=== PATIENT | male | born 1955 | race Caucasian/White ===

== ENCOUNTER 2017-08-14 08:26 | Inpatient (IN) | payer OTHER ==
--- NOTE | 2017-08-14 06:44 | PDHPUP ---
History & Physical Update H&P update statement: This history and physical update is based on an assessment of the patient which was completed after admission or registration (within 24 hours), but prior to the surgery/procedure. H&P update: H&P reviewed & patient examined, no change in patient's condition since H&P completed
[2017-08-14] MEDS ORDERED: GABAPENTIN 300 MG CAP PO ONE (08:38)
[2017-08-14] MEDS ORDERED: ACETAMINOPHEN 500 MG TAB PO ONE (08:38)
[2017-08-14] MEDS ORDERED: ceFAZolin 2 GM/SWFI 2 GM/20 ML SYR IVP ONE (08:38)
[2017-08-14] MEDS ORDERED: LR 1,000 ML IV ONE (08:39)
[2017-08-14] MEDS ORDERED: LIDOCAINE 1% 2 ML INJ ID PRN (08:39)
[2017-08-14] MEDS ORDERED: CHLORHEXIDINE GLUC HIBICLENS 118 ML BTL TP ONE (09:08)
[2017-08-14] MEDS ORDERED: THROMBIN (BOVINE) 5,000 UNIT VIAL TP ONE (09:08)
[2017-08-14] MEDS ORDERED: BUPIVACAINE 0.25% 30 ML SDV ONE (09:08)
[2017-08-14] MEDS ORDERED: EPINEPHrine 1 MG/ML INJ ONE (09:09)
[2017-08-14] MEDS ORDERED: BACITRACIN 50,000 UNITS/10 ML SYR IRR ONE ×2 (09:09→13:39)
[2017-08-14] MEDS ORDERED: ONDANSETRON 4 MG/2 ML VIAL IVP PRN ×2 (09:37→10:42)
[2017-08-14] MEDS ORDERED: NALOXONE HCL 0.4 MG/ML INJ IVP PRN ×2 (09:37→10:42)
[2017-08-14] MEDS ORDERED: HYDROmorphONE/DILAUDID 2 MG/ML INJ IVP PRN (09:37)
[2017-08-14] MEDS ORDERED: ALBUTEROL 3 ML DEYVIAL IH PRN (09:37)
[2017-08-14] MEDS ORDERED: MIDAZOLAM 2 MG/2 ML VIAL IVP ONE (09:37)
[2017-08-14] MEDS ORDERED: oxyCODONE IR 5 MG TAB PO PRN (09:37)
[2017-08-14] MEDS ORDERED: DEXAMETHASONE 4 MG/ML VIAL IVP PRN (09:37)
--- NOTE | 2017-08-14 09:39 | PDANEPAE ---
ANE History of Present Illness L4-S1 TLIF ANE Past Medical History - Cardiovascular History Hx Hypertension: No Hx Arrhythmias: No Hx Chest Pain: No Hx Coronary Artery / Peripheral Vascular Disease: No Hx CHF / Valvular Disease: No Hx Palpitations: No - Pulmonary History Hx COPD: No Hx Asthma/Reactive Airway Disease: No Hx Recent Upper Respiratory Infection: No Hx Oxygen in Use at Home: No Hx Sleep Apnea: No Sleep Apnea Screening Result - Last Documented: Negative Pulmonary History Comment: SEASONAL ALLERGIES-USES NASAL SPRAY - Neurologic History Hx Cerebrovascular Accident: No Hx Seizures: No Hx Dementia: No - Endocrine History Hx Diabetes: No - Renal History Hx Renal Disorders: No Renal History Comment: BPH ?- ON RX - Liver History Hx Hepatic Disorders: No - Neurological & Psychiatric Hx Hx Neurological and Psychiatric Disorders: Yes Neurological / Psychiatric History Comment: LOW BACK PAIN RADIATES BILAT LEGS, AND RADIATES UPWARD. TX W/ ALKA - Cancer History Hx Cancer: No - Congenital Disorder History Hx Congenital Disorders: No - GI History Hx Gastrointestinal Disorders: Yes Gastrointestinal History Comment: GERD-ON RX - Other Health History Other Health History: DRY SKIN- KAMI HANDS AND FEET - Chronic Pain History Chronic Pain: Yes (LOW BACK,LEGS) - Surgical History Prior Surgeries: TONSILLECTOMY AGE 4 ANE Review of Systems Review of Systems: - Exercise capacity Exercise capacity: >=4 METS METS (RN): 4 METS ANE Patient History - Allergies Allergies/Adverse Reactions: No Known Allergies Allergy (Verified 08/14/17 09:03) - Home Medications Home Medications: Finasteride [Proscar 5 MG (*)] 5 mg PO DAILY 08/04/17 [Last Taken 08/13/17 22:00 ] Fluticasone Nasal [Flonase Nasal [place] (RX)] 1 sprays NASAL DAILY 08/04/17 [ Last Taken 08/13/17 22:00] Pantoprazole Sodium [Protonix 40mg (*)] 40 mg PO DAILY 08/04/17 [Last Taken 06:00] Tamsulosin HCl [Flomax 0.4 MG (*)] 0.4 mg PO DAILY 08/04/17 [Last Taken 06:00] - Smoking Hx Smoking Status: Never smoked - Family Anes Hx Family Hx Anesthesia Complications: NONE ANE Labs/Vital Signs - Vital Signs Height: 180.34 cm Weight: 95.254 kg ANE Physical Exam - Airway Neck exam: FROM Mallampati Score: Class 2 - Pulmonary Pulmonary: clear to auscultation - Cardiovascular Cardiovascular: regular rate and rhythym - ASA Status ASA Status: II ANE Anesthesia Plan Anesthesia Plan: general endotracheal anesthesia
[2017-08-14] MEDS ORDERED: PROPOFOL/EMULSION 500 MG/50 ML BOTTLE IV ONE ×3 (09:43→12:41)
[2017-08-14] MEDS ORDERED: SUCCINYLCHOLINE CHLORIDE 200 MG/10 ML SYR IVP ONE (09:47)
[2017-08-14] MEDS ORDERED: LIDOCAINE 2% 5 ML SDV ONE (09:48)
[2017-08-14] MEDS ORDERED: ONDANSETRON 4 MG/2 ML VIAL ONE (09:49)
[2017-08-14] MEDS ORDERED: RANITIDINE 50 MG/2 ML VIAL ONE (09:49)
[2017-08-14] MEDS ORDERED: MIDAZOLAM 2 MG/2 ML VIAL ONE (09:49)
[2017-08-14] MEDS ORDERED: DEXAMETHASONE 4 MG/ML VIAL ONE ×2 (09:49)
[2017-08-14] MEDS ORDERED: HYDROmorphONE/DILAUDID 2 MG/ML INJ ONE (10:10)
[2017-08-14] MEDS ORDERED: HYDROmorphONE/DILAUDID 6 MG/30 ML PCA IV PRN (10:42)
[2017-08-14] MEDS ORDERED: HYDROmorphONE/DILAUDID 1 MG/ML INJ IVP PRN (10:42)
[2017-08-14] MEDS ORDERED: BISACODYL 10 MG SUPP PR PRN (10:42)
[2017-08-14] MEDS ORDERED: diphenhydrAMINE 25 MG CAP PO PRN (10:42)
[2017-08-14] MEDS ORDERED: ONDANSETRON DISINTEGRATING 4 MG TAB PO PRN (10:42)
[2017-08-14] MEDS ORDERED: HYDROCODONE/APAP 5/325 TAB PO PRN (10:42)
[2017-08-14] MEDS ORDERED: POLYETHYLENE GLYCOL 3350 17 GM PKT PO PRN (10:42)
[2017-08-14] MEDS ORDERED: MAGNESIUM HYDROXIDE 30 ML UDCUP PO PRN (10:42)
[2017-08-14] MEDS ORDERED: LACTULOSE 20 GM/30 ML UDCUP PO PRN (10:42)
[2017-08-14] MEDS ORDERED: NS 1,000 ML IV SCH (10:45)
[2017-08-14] MEDS ORDERED: ePHEDrine SULFATE 25 MG/5 ML SYR ONE ×2 (11:09)
[2017-08-14] MEDS ORDERED: VASOPRESSIN 20 UNIT/ML VIAL ONE (13:44)
[2017-08-14] MEDS ORDERED: ceFAZolin 1 GM VIAL ONE (14:12)
[2017-08-14] MEDS ORDERED: PROPOFOL 200 MG/20 ML VIAL ONE (14:31)
--- NOTE | 2017-08-14 15:29 | POSTANESTH ---
Post Anesthetic Evaluation Cardiovascular Status: Normal, Stable Respiratory Status: Requires Airway Assist Level of Consciousness/Mental Status: Moderately Sleepy Pain Control: Adequate, Prn Tx Ordered Nausea/Vomiting Control: Adequate, Prn Tx Ordered
--- NOTE | 2017-08-14 15:35 | POSTOPPROG ---
Post Op Note Date of Operation: 08/14/17 Surgeon: Eder Palacios Supervisor [employer]: Susana Anesthesiologist: Diaz Anesthesia: GET(General Endotracheal), Local (Specify) (to incision area) Pre-op Diagnosis: lumbar stenosis/pars defect L4 and L5 Post-op Diagnosis: lumbar stenosis/pars defect L4 and L5 Indication: LBP with BLE pain Procedure: TLIF L4/5 and L5/S1 with davis decompression bilaterally Findings: none Inf/Abcess present in the surg proc area at time of surgery?: No Depth: Deep Incisional (Fascial) EBL: 100-500 Complications: none Drains: Miguel Keenan
--- NOTE | 2017-08-14 15:37 | SOAPPROG ---
SOAP Progress Note Assessment/Plan: Post Op Visit: S: Awake and alert. NAD. Pt with expected lower back pain O:AFVSS/PERRLA/EOMI no droop CN 2-12 grossly intact +lt touch 5/5 BUE/BLE = CDI RADHA in place A/P: 62 yo male that is s/p TLIF at L4/5 and L5/S1 -orders in place -call with any questions or concerns -pt seen by Dr Palacios as well -brace when out of bed -PT/OT pending -RADHA in place 08/14/17 15:35 Objective: Vital Signs Temp Pulse Resp BP Pulse Ox 36.5 C 80 16 115/81 H 94 08/14/17 09:38 08/14/17 09:38 08/14/17 09:38 08/14/17 09:38 08/14/17 09:38 ICD10 Worksheet Patient Problems: Problems Problem Status Onset Arthrodesis status Acute Lumbar radicular pain Acute Lumbar stenosis Acute - ICD10 Problem Qualifiers (1) Lumbar stenosis Qualifiers: Neurogenic claudication status: with neurogenic claudication Qualified Code (s): M48.062 - Spinal stenosis, lumbar region with neurogenic claudication (2) Lumbar radicular pain (3) Arthrodesis status
[2017-08-14] MEDS ORDERED: fentaNYL 100 MCG/2 ML INJ ONE ×2 (15:47→16:42)
[2017-08-14] MEDS: fentaNYL 100 MCG/2 ML INJ IVP PRN ×6 (15:48→17:20)
[2017-08-14] MEDS ORDERED: oxyCODONE IR 5 MG TAB ONE (16:11)
[2017-08-14] MEDS ORDERED: HYDROmorphONE/DILAUDID 1 MG/ML INJ ONE (16:25)
--- NOTE | 2017-08-14 17:30 | GOP ---
[f rep st] OPERATIVE REPORT DATE OF OPERATION: 08/14/2017 SURGEON: Sunitha Palacios MD [employer] OPERATOR: Farooq Meza PA-C. PREOPERATIVE DIAGNOSIS: Lumbar spondylolisthesis with bilateral L4 and L5 pars defects; spondylolist hesis L4-5, L5-S1; severe axial low back pain; lumbosacral radiculopathy. POSTOPERATIVE DIAGNOSIS: Lumbar spondylolisthesis with bilateral L4 and L5 pars defects; spondylolis thesis L4-5, L5-S1; severe axial low back pain; lumbosacral radiculopathy. PROCEDURE PERFORMED: Posterolateral and intervertebral arthrodesis with decompression and fusion L4- 5, L5-S1 (26936, 05350); posterior segmental instrumentation L4, L5, S1 (57595); placement of biomech anical intervertebral device L4-5, L5-S1 (83490 x2); same incision bone graft harvest; microscope; sp inal stereotaxis. FINDINGS: ESTIMATED BLOOD LOSS: 500 cc. INDICATIONS: The patient is a mature gentleman with terrible axial low back pain and intermittent agueda mbosacral radiculopathy, but his back pain dominated his clinical picture, and plain films and MRI de monstrated bilateral spondylolysis L4 and L5 with spondylolisthesis at each level. There is severe f oraminal compromise at L4-5 and more mild foraminal compromise at L5-S1. I suggested a 2-level fusio n and so did another spine surgeon. The risk of adjacent segment disease and future spine surgery wa s discussed, as well as risk of CSF leak, nerve injury, continued or worsening symptoms, screw and lincoln rdware malposition, malfunction, failure, pseudarthrosis, and the possible need for revision surgery. He understood these risks and he wanted to proceed. DESCRIPTION OF PROCEDURE: The patient was taken to the operating room, placed in supine position. G eneral anesthesia was begun. He was flipped prone onto the Miguel table. Care was taken to pad all points of contact. His back was sterilely prepped and draped in usual fashion. A localizing x-ray was taken. We made a midline incision above the L4, L5, S1 interspaces. The subcutaneous tissue was dissected using Bovie cautery down through the fascia, and a subperiosteal dissection was made down the sacrum. L5 and L4 and the lamina of L3 was totally exposed. L4 and L5 were diving underneath on e another and they were superimposed on one another. We placed a self-retaining retractor. We shot a localizing x-ray. We denuded the bilateral facet joints at L4-5, L5-S1. We performed an O-arm spi n, and using frameless stealth stereotaxy, placed pedicle screws that were bicortical at S1, and then we placed bilateral screws at L4 and L5. They all stimulated at acceptable levels. There was good bony purchase. His bone quality was suboptimal, but nevertheless, we got great bony purchase from th e screws themselves. We took a 70 mm zachary that was bent, placed it between the screws, and distracted significantly, more so at L4-5 than L5-S1. We got some reduction of the spondylolisthesis as expect ed. As we did so, the laminae quit over riding each other. Now, the L4 and L5 laminae were clearly visible and they were both mobile. They were both floating laminae. We removed the spinous process of L4 and the spinous process of L5 for autologous grafting purposes and drilled the complete lamina of L4 and L5 out on both sides and we then performed a Blake decompression at each level, resecting at each level the abnormal pars interarticularis on each side. This did take considerable time, more s o than would be required for a single level TLIF, as we had to remove the abnormal pars on both sides into both neural foramen. We decompressed the exiting L4 and L5 nerve roots, as well as the jeromy ing L4, L5, and S1 nerve roots. A great decompression was obtained from the left-hand side. We then removed the L5-S1 disk and the L4-5 disk. We roughened the subchondral bone to create arthrodesis. We packed a large amount of bony autograft into each disk space and followed this with an 8 x 28 mm expandable cage. We used 4 mg of BMP on the surgery, 2 were placed into the disk spaces and 2 were p laced posterolaterally. We expanded the implants under fluoroscopic guidance, and I was happy with t he implants. We had final tightened all the cap screws according to company specification. We decor ticated all the posterolateral bone bilaterally and this did take additional time as well at L4 and L 5 to decorticate what was affectively the isthmus coming off the L4 and L5 pedicle on each side, but we were able to do this to give solid posterolateral bony targets for fusion. We then placed bone au tograft and BMP posterolaterally bilaterally, followed by a subfascial drain. We then closed the inc ision in multiple layers using Vicryl sutures. A running PDS was placed in the skin itself. There w ere no complications. COMPLICATIONS: None. /[id number]/MODL
[2017-08-14] MEDS: GABAPENTIN 300 MG CAP PO SCH ×2 (17:55→21:43)
[2017-08-14] MEDS: ACETAMINOPHEN 500 MG TAB PO SCH ×2 (17:55→21:42)
[2017-08-14] MEDS: oxyCODONE IR 5 MG TAB PO PRN ×2 (18:05→23:51)
[2017-08-14] MEDS: METHOCARBAMOL 500 MG TAB PO PRN (18:06)
[2017-08-14] MEDS: ceFAZolin 2 GM/DEXTROSE 100 ML IV SCH (21:40)
[2017-08-14] MEDS: SENNOSIDES/DOCUSATE SODIUM TAB PO SCH (21:42)
[2017-08-14] MEDS: FAMOTIDINE 20 MG TAB PO SCH (21:43)
[2017-08-15] MEDS: METHOCARBAMOL 500 MG TAB PO PRN ×2 (03:37→16:16)
[2017-08-15 05:12] LABS: PLATELET COUNT 207 10^3/uL (150-400)
--- NOTE | 2017-08-15 05:25 | PDMN ---
Medical Necessity Medical necessity: Pt meets INPT criteria per MD and [facility] S-820 Lumbar Fusion ( TLIF L4/5, L5/S1 - IPO surgery).
[2017-08-15] MEDS: ACETAMINOPHEN 500 MG TAB PO SCH (05:52)
[2017-08-15] MEDS: GABAPENTIN 300 MG CAP PO SCH ×3 (05:53→21:13)
[2017-08-15] MEDS: ceFAZolin 2 GM/DEXTROSE 100 ML IV SCH (05:53)
[2017-08-15] MEDS: oxyCODONE IR 5 MG TAB PO PRN ×4 (07:04→18:43)
[2017-08-15] MEDS: TAMSULOSIN HCL 0.4 MG CAP PO SCH (08:20)
[2017-08-15] MEDS: FAMOTIDINE 20 MG TAB PO SCH ×2 (08:20→21:12)
[2017-08-15] MEDS: FINASTERIDE 5 MG TAB PO SCH (08:20)
[2017-08-15] MEDS: SENNOSIDES/DOCUSATE SODIUM TAB PO SCH ×2 (08:20→21:13)
[2017-08-15] MEDS: PANTOPRAZOLE SODIUM 40 MG TAB PO SCH (08:20)
--- NOTE | 2017-08-15 10:05 | NEUSURGPN ---
Assessment/Plan: A/P: 62 yo male that is s/p TLIF at L4/5 and L5/S1 POD1 -Optimize pain management -Post oper xrays pending -LSO when out of bed] -H:H okay 11:33 -PT/OT pending -RADHA in place -Discussed with Dr. Palacios -DVT prophx: TEDs, SCDs -Please notify NS with any change in neuro/motor exam 08/14/17 15:35 Subjective: low abck pain tolerable with medications. Leg numbness improved since surgery Objective: NAD A&Ox3 +lt touch 07/26 BUE/BLE = Incision CDI RADHA in place Catheter Insertion Date: 08/14/17 - Physician Discussed Patient with : Philip Neurosurgery Physical Exam - Vitals, I&O, Labs I and O 08/14/17 08/15/17 08/16/17 05:59 05:59 05:59 Intake Total 5610 Output Total 5120 Balance 490 Weight 95.254 kg Intake: Oral (ml) 1400 IV Intake (ml) 4000 IV Infused (ml) 210 ceFAZolin 2 GM/DEXTROSE 210 100 ml @ 200 mls/hr IV Q8HRS [facility] Rx#:[id number] Output: Urine (ml) 4235 Catheter 4235 Estimated Blood Loss (ml) 505 RADHA Drain Output (ml) 380 #1 Posterior Back Migeul 380 Keenan Other: Intake Quantity Yes Sufficient Number of Voids Catheter 1 Vital Signs Temp Pulse Resp BP Pulse Ox 36.9 C 73 16 113/74 93 08/15/17 07:32 08/15/17 07:32 08/15/17 07:32 08/15/17 07:32 08/15/17 08:05 Laboratory Results 08/15/17 04:55 08/15/17 04:55 ICD10 Worksheet Patient Problems: Problems Problem Status Onset Arthrodesis status Acute Lumbar radicular pain Acute Lumbar stenosis Acute
[2017-08-15] MEDS: FLUTICASONE NASAL 120 SPRAYS/16 GM MDI NS SCH ×2 (13:23→22:19)
--- NOTE | 2017-08-15 14:34 | ASMTCMCOM ---
CM Note CM Note Notes: Pt s/p TLIF at L4/5 and L5/S1. OT rec home, PT rec home/outpatient. Anticipate pt will d/c when medically stable with support. No CM d/c needs identified. CM available for changes/needs. Date Signed: 08/15/2017 02:33 PM Electronically Signed By:BECKY Gerber
[2017-08-16] MEDS: oxyCODONE IR 5 MG TAB PO PRN ×5 (00:49→12:43)
[2017-08-16] MEDS: METHOCARBAMOL 500 MG TAB PO PRN ×3 (02:13→16:46)
[2017-08-16] MEDS: GABAPENTIN 300 MG CAP PO SCH ×2 (06:02→14:47)
[2017-08-16] MEDS: FAMOTIDINE 20 MG TAB PO SCH (08:27)
[2017-08-16] MEDS: FINASTERIDE 5 MG TAB PO SCH (08:27)
[2017-08-16] MEDS: TAMSULOSIN HCL 0.4 MG CAP PO SCH (08:28)
[2017-08-16] MEDS: SENNOSIDES/DOCUSATE SODIUM TAB PO SCH (08:28)
[2017-08-16] MEDS: FLUTICASONE NASAL 120 SPRAYS/16 GM MDI NS SCH (08:28)
[2017-08-16] MEDS: PANTOPRAZOLE SODIUM 40 MG TAB PO SCH (08:28)
--- NOTE | 2017-08-16 09:26 | SOAPPROG ---
SOFRACISCO Progress Note Assessment/Plan: Assessment: 62 yo M pod #2 L4-S1 TLIF Plan: neuro: stable and doing well PT/OT x-rays look good scd/daniel/lovenox for dvt prophylaxis RADHA x 1, will keep for now please call with neuro changes discussed with DR Sue 08/16/17 09:24 Subjective: + back pain, no leg pain, no weakness. Objective: Vital Signs Temp Pulse Resp BP Pulse Ox 37.1 C 82 15 115/77 92 08/16/17 07:55 08/16/17 07:55 08/16/17 07:55 08/16/17 07:55 08/16/17 07:55 Laboratory Results 08/15/17 04:55 08/15/17 04:55 08/15/17 08/16/17 08/17/17 05:59 05:59 05:59 Intake Total 5610 2000 550 Output Total 5120 780 650 Balance 490 1220 -100 AAOx4, +FC PERRL, EOMI, no facial droop 5/5 + light touch C/D/I ICD10 Worksheet Patient Problems: Problems Problem Status Onset Arthrodesis status Acute Lumbar radicular pain Acute Lumbar stenosis Acute
[2017-08-16 16:02] VITALS: BP 117/77
--- NOTE | 2017-08-16 17:55 | ASMTLACE ---
LACE Length of stay for Answers: 2 days current admission Acuity / Level of Answers: Yes Care: Did the patient have an inpatient admission? Comorbidities - select Answers: Other Notes: Spondylolisthesis, sten osi all that apply s, s/p TLIF # of Emergency department Answers: 0 visits in the last 6 months Score: 6 Date Signed: 08/16/2017 05:54 PM Electronically Signed By:Marisol Al RN
--- NOTE | 2017-08-16 17:59 | ASDISCHSUM ---
Discharge Information Plan Status:Home with No Needs Medically Cleared to Leave: Discharge Date:08/16/2017 05:20 PM CM D/C Disposition:Home, Routine, Self-Care ADT D/C Disposition:Home, Routine, Self-Care Projected Discharge Date:08/16/2017 05:20 PM Transportation at D/C:Family Discharge Delay Reason: Follow-Up Date:08/16/2017 05:20 PM Discharge Slot:2 - 12:01 pm - 18:00 pm Final Diagnosis:Spondylolisthesis, stenosis, s/p TLIF L4-5, L5-S1 Placement Information Patient Contact Information Contact Name:HANNA Relationship: Address: [address] Work Phone: [facility]:[employer] Alternate Phone: [facility]/Zip Code:[place] [address] Email: Financial Information Financial Class:[employer] Primary Plan Desc:VERENA HANNON [facility] Primary Plan Number:[id number] Secondary Plan Desc: Secondary Plan Number: Assessment Information LACE LACE Length of stay for Answers: 2 days current admission Acuity / Level of Answers: Yes Care: Did the patient have an inpatient admission? Comorbidities - select Answers: Other Notes: Spondylolisthesis, sten osi all that apply s, s/p TLIF # of Emergency department Answers: 0 visits in the last 6 months Score: 6 Date Signed: 08/16/2017 05:54 PM Electronically Signed By:Marisol Al RN [facility] Progress Note CM Note CM Note Notes: Pt s/p TLIF at L4/5 and L5/S1. OT rec home, PT rec home/outpatient. Anticipate pt will d/c when medically stable with support. No CM d/c needs identified. CM available for changes/needs. Date Signed: 08/15/2017 02:33 PM Electronically Signed By:BECKY Gerber Case Management Discharge Plan Note Case Management Discharge Discharge Order Complete? Answers: Yes Patient to Obtain Answers: Independently Medications Transportation Arranged Answers: Family/Friends Transport will Pick (Date 08/16/2017 12:00 AM & Time) EMTALA Complete Answers: No Notes: N/A Case Management Transport Answers: No Notes: N/A Form Complete Faxed Final Orders Answers: No Notes: N/A Agency/Facility Transfer Answers: No Notes: N/A Report Printed & Faxed to Receiving Agency Family Notified Answers: Yes Notes: At bedside Discharge Comments Notes: Reviewed chart, spoke with KAMAR Barbour regarding discharge plan of care, pt's progress. Per MD notes, pt to discharge home today with family support and no identified needs. Per Angle, pt does not need home health care. No OT follow up. PT recommends outpt therapy. Pt lives with his . No IM signed, not applicable. Pt to follow up as directed. CM available for any further issues or concerns. Discharge Plan: Home independently with family support Date Signed: 08/16/2017 05:58 PM Electronically Signed By:Marisol Al RN Intervention Information
[2017-08-17] MEDS ORDERED: ENOXAPARIN 40 MG/0.4 ML SYR SC SCH (09:00)
== END 2017-08-16 17:20 | disposition home or self-care (01) | DRG 460 ==
LOC: F3N 14:50
PROVIDERS: ADMIT Neurological Surgery; ATTEND Neurological Surgery
PROC: 0SG30AJ Fusion of Lumbosacral Joint with Interbody Fusion Device, Posterior Approach, Anterior Column, Open Approach (ICD-10-PCS; principal; 2017-08-14 10:00)
PROC: 0QB00ZZ Excision of Lumbar Vertebra, Open Approach (ICD-10-PCS; principal; 2017-08-14 10:00)
PROC: 01NB0ZZ Release Lumbar Nerve, Open Approach (ICD-10-PCS; principal; 2017-08-14 10:00)
PROC: 0SG00AJ Fusion of Lumbar Vertebral Joint with Interbody Fusion Device, Posterior Approach, Anterior Column, Open Approach (ICD-10-PCS; principal; 2017-08-14 10:00)
PROC: 0ST40ZZ Resection of Lumbosacral Disc, Open Approach (ICD-10-PCS; principal; 2017-08-14 10:00)
PROC: 0ST20ZZ Resection of Lumbar Vertebral Disc, Open Approach (ICD-10-PCS; principal; 2017-08-14 10:00)
PROC: 3E0U0GB Introduction of Recombinant Bone Morphogenetic Protein into Joints, Open Approach (ICD-10-PCS; principal; 2017-08-14 10:00)
DX: M43.16 Spondylolisthesis, lumbar region (principal); M43.17 Spondylolisthesis, lumbosacral region; M51.16 Intervertebral disc disorders with radiculopathy, lumbar region; M51.17 Intervertebral disc disorders with radiculopathy, lumbosacral region
CPT/HCPCS: 97116-GP; 97161-GP; 97165-GO; 97530-GP; C1713; J0171; J0330; J0690; J1100; J1170; J2250; J2405; J2704; J2780; J3010